=== PATIENT | male | born 1975 | race Caucasian/White ===

== ENCOUNTER 2017-02-08 12:28 | Emergency (ER) | payer SELFPAY ==
[~2017-02-08] VITALS: Ht 170.2 cm; Wt 75.3 kg
[2017-02-08 13:17] VITALS: BP 113/92
--- NOTE | 2017-02-08 14:27 | NUR ---
Patient ambulated to bed 8. RN evaluating patient at bedside.
[2017-02-08] MEDS ORDERED: NACL 0.9% 1,000 ML IV SCH (14:28)
[2017-02-08] MEDS ORDERED: FAMOTIDINE 20 MG/2 ML VIAL IVP ONE (14:30)
[2017-02-08] MEDS ORDERED: ONDANSETRON 4 MG/2 ML VIAL IVP ONE (14:30)
[2017-02-08] MEDS ORDERED: ACETAMINOPHEN EXTRA STRENGTH 500 MG TAB PO ONE (14:40)
[2017-02-08 14:45] LABS: BASOPHILS # (AUTO) 0.1 K/uL (0.00-0.22); BASOPHILS % (AUTO) 1.1 % (0.0-2.0); EOSINOPHILS # (AUTO) 0.1 K/uL (0-0.4); EOSINOPHILS % (AUTO) 1.2 % (0.0-4.0); LYMPHOCYTES % (AUTO) 18.1 % (20.5-51.1); MEAN CORPUSCULAR HEMOGLOBIN 28 pg (27-31); MEAN CORPUSCULAR HGB CONC 33 g/dL (33-37); MEAN CORPUSCULAR VOLUME 87 fL (80-94); MONOCYTES # (AUTO) 0.3 K/uL (0.8-1.0); MONOCYTES % (AUTO) 4.6 % (1.7-9.3); NEUTROPHILS # (AUTO) 4.3 K/uL (1.8-7.7); PLATELET COUNT (AUTO) 531 K/uL (140-450); RED BLOOD CELL COUNT(AUTO) 5.31 MIL/uL (4.20-6.10); RED CELL DISTRIBUTION WIDTH 12.8 % (11.6-13.7); WHITE BLOOD COUNT (AUTO) 5.8 K/uL (4.8-10.8)
[2017-02-08 15:14] LABS: ANION GAP 7.5 (8-16); CALCIUM 8.3 mg/dL (8.5-10.1); CARBON DIOXIDE 29.6 mmol/L (21-32); CREATININE 1.1 mg/dL (0.6-1.3); POTASSIUM 4.1 mmol/L (3.5-5.1); TOTAL BILIRUBIN 0.6 mg/dL (0.0-1.0); TOTAL PROTEIN, SERUM 8.9 g/dL (6.4-8.2)
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
[2017-02-08 15:56] LABS: APPEARANCE,URINE CLEAR (CLEAR); BILIRUBIN,URINE NEGATIVE (NEGATIVE); BLOOD, URINE NEGATIVE (NEGATIVE); COLOR,URINE YELLOW (YELLOW); LEUKOCYTE ESTERASE ,URINE NEGATIVE (NEGATIVE); NITRITE, URINE NEGATIVE (NEGATIVE); PROTEIN,URINE TRACE (NEGATIVE); UGLUCOSE NEGATIVE (NEGATIVE)
[2017-02-08 15:59] LABS: AMPHETAMINE, URINE POS. ng/ml (NEG <=1000); BARBITURATE, URINE NEG. ng/ml (NEG <=200); BENZODIAZEPINE, URINE NEG. ng/mL (NEG <=200); CANNABINOID, URINE POS. ng/mL (NEG <=50); COCAINE, URINE NEG. ng/mL (NEG <=300); OPIATE, URINE NEG. ng/mL (NEG <=2000); PHENCYCLIDINE SCREEN,URINE NEG. ng/mL (NEG <=25)
[2017-02-08 16:04] LABS: BACTERIA,URINE 0-2 (RARE) /HPF (None Seen); RBC,URINE NONE SEEN /HPF (0-5); SQUAMOUS EPITHELIAL CELL,UR None Seen /LPF (0-3 (FEW)); WBC,URINE NONE SEEN /HPF (0-5)
[2017-02-08 16:58] VITALS: BP 127/65
== END 2017-02-08 16:55 | disposition home or self-care (01) ==
LOC: MED 12:28
DX: R11.2 Nausea with vomiting, unspecified (principal); R51 Headache; M79.1 Myalgia; F19.10 Other psychoactive substance abuse, uncomplicated
CPT/HCPCS: 36415; 80053; 80305; 81001; 82150; 83690; 85025; 87804; 96361; 96374; 96375; 99284; J2405; J3490; J7030

== ENCOUNTER 2019-06-03 15:45 | Emergency (ER) | payer OTHER ==
[~2019-06-03] VITALS: Ht 165.1 cm; Wt 68.5 kg
[2019-06-03 15:59] VITALS: BP 126/84
--- NOTE | 2019-06-03 16:03 | NUR ---
PT TO WAIT IN ER LOBBY. DR GALLEGO NOTIFIED OF PT STATUS
--- NOTE | 2019-06-03 16:15 | NUR ---
EKG PERFORMED BY [facility]NE EMT IN TRIAGE ROOM
--- NOTE | 2019-06-03 16:20 | NUR ---
PT BEING WHEELCHAIRED TO XRAY
[2019-06-03 16:26] LABS: BASOPHILS % (AUTO) 0.3 % (0.0-2.0); EOSINOPHILS # (AUTO) 0.4 K/uL (0-0.4); HEMATOCRIT 34.9 % (36-52); HEMOGLOBIN 11.9 g/dL (12.0-18.0); LYMPHOCYTES # (AUTO) 0.8 K/uL (2.0-11.5); LYMPHOCYTES % (AUTO) 13.3 % (20.5-51.1); MEAN CORPUSCULAR HEMOGLOBIN 28 pg (27-31); MEAN CORPUSCULAR HGB CONC 34 g/dL (33-37); MONOCYTES # (AUTO) 0.7 K/uL (0.8-1.0); MONOCYTES % (AUTO) 10.9 % (1.7-9.3); NEUTROPHILS # (AUTO) 4.1 K/uL (1.8-7.7); NEUTROPHILS % (AUTO) 68.5 % (42.2-75.2); PLATELET COUNT (AUTO) 238 K/uL (140-450); RED BLOOD CELL COUNT(AUTO) 4.21 MIL/uL (4.20-6.10); RED CELL DISTRIBUTION WIDTH 13.7 % (11.6-13.7); WHITE BLOOD COUNT (AUTO) 6.1 K/uL (4.8-10.8)
[2019-06-03 16:40] LABS: ANION GAP 11.9 (8-16); CARBON DIOXIDE 26.1 mmol/L (21-32); CREATININE 1.1 mg/dL (0.7-1.3)
[2019-06-03 16:46] LABS: ALBUMIN 2.5 g/dL (3.4-5.0); TOTAL BILIRUBIN 0.3 mg/dL (0.0-1.0)
--- NOTE | 2019-06-03 17:35 | NUR ---
PT TO ER BED 1
--- NOTE | 2019-06-03 17:51 | NUR ---
PT C/O SOB AND COUGH X 2 WEEKS. PT STATES HE RECENTLY STOPPED SMOKING. CP WITH COUGH AND WHITE/YELLOWISH PHLEGM, SOMETIMES WITH BLOOD. ADMITS TO SMOKING METH 2 WEEKS AGO. 30 LBS WEIGHT LOSS WITHIN LAST MONTH. RR EVEN AND UNLABORED. LUNG CLEAR BILATERAL; HR EVEN AND REGULAR; PATIENT STATES PAIN OF 0/10 AT THIS TIME; VSS; PATIENT POSITIONED FOR COMFORT; HOB ELEVATED; BEDRAILS UP X2; BED DOWN. ER MD MADE AWARE OF PT STATUS.
[2019-06-03] MEDS ORDERED: NACL 0.9% 1,000 ML IV ONE (18:00)
--- NOTE | 2019-06-03 19:17 | NUR ---
RECEIVED REPORT FROM DAY NURSE, 43 YO MALE AAOX4 SITTING UP IN GURNEY COMES TO ED FOR C/O SOB X 2 WEEKS. PT HAS PRODUCTIVE COUGH YELLOW SPUTUM NOTED. DIMINISHED BREATH SOUNDS @ BASES. PT STATES 30 LB WEIGHT LOSS AND RECENTLY QUIT SMOKING X 2WEEKS AGO. PT DENIES N/V/D. GURNEY LOCKED IN LOWEST POSITION. 18 G R AC PIV NOTED. NO ACUTE DISTRESS @ THIS TIME.
--- NOTE | 2019-06-03 19:18 | NUR ---
REPORT GIVEN TO TRISH SAVAGE. TRANSFERED CARE AT THIS TIME.
[2019-06-03 20:45] VITALS: BP 132/62
== END 2019-06-03 20:45 | disposition home or self-care (01) ==
LOC: MED 15:45
DX: J06.9 Acute upper respiratory infection, unspecified (principal); F17.200 Nicotine dependence, unspecified, uncomplicated; J45.909 Unspecified asthma, uncomplicated
CPT/HCPCS: 36415; 71045; 71275; 80053; 84484; 85025; 85379; 93005; 99284; J7030; Q9967

== ENCOUNTER 2019-12-30 14:39 | Emergency (ER) | payer MEDICAID, OTHER ==
[~2019-12-30] VITALS: Ht 167.6 cm; Wt 59.0 kg
[2019-12-30 14:45] VITALS: BP 136/92
--- NOTE | 2019-12-30 14:45 | NUR ---
BIBA TO BED 10.
--- NOTE | 2019-12-30 14:52 | NUR ---
PATIENT AMBULATED TO REST ROOM.
--- NOTE | 2019-12-30 15:12 | NUR ---
BIBA C/O N/V/D, ABDOMINAL PAIN. SEEN BY [facility] RECENTLY SAME S/S. PATIENT STATES PAIN OF 9/10 AT THIS TIME; VSS; PATIENT POSITIONED FOR COMFORT; HOB ELEVATED; BEDRAILS UP X1; BED DOWN. ER MD MADE AWARE OF PT STATUS.
--- NOTE | 2019-12-30 15:21 | NUR ---
Dr. Cooper is evaluating patient at bedside.
[2019-12-30 16:26] VITALS: BP 122/87
--- NOTE | 2019-12-30 16:26 | NUR ---
Patient given written and verbal discharge instructions and verbalizes understanding. Given copies of tests performed during visit. Patient is awake, alert and oriented. Ambulatory with steady gait. Refuses offer of [facility] placement. Given list of available shelters in surrounding areas. Bus pass provided.
== END 2019-12-30 16:26 | disposition home or self-care (01) ==
LOC: MED 14:39
DX: R11.2 Nausea with vomiting, unspecified (principal); R19.7 Diarrhea, unspecified
CPT/HCPCS: 99283

== ENCOUNTER 2020-01-06 08:08 | Emergency (ER) | payer MEDICAID ==
[~2020-01-06] VITALS: Ht 172.7 cm; Wt 72.6 kg
--- NOTE | 2020-01-06 08:08 | NUR ---
Patient BIBA BLS, transferred to bed 8. RN evaluating patient at bedside.
[2020-01-06 08:23] VITALS: BP 118/75
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
--- NOTE | 2020-01-06 08:33 | NUR ---
DR GALLEGO AT BEDSIDE EVALUATING PT.
[2020-01-06] MEDS ORDERED: KETOROLAC 60 MG/2 ML VIAL IM ONE (08:40)
--- NOTE | 2020-01-06 08:54 | NUR ---
IM MEDS GIVEN-NADR AT THIS TIME
[2020-01-06 10:23] VITALS: BP 121/88
--- NOTE | 2020-01-06 10:25 | NUR ---
Patient discharged with v/s stable. Written and verbal after care instructions given and explained. Patient alert, oriented and verbalized understanding of instructions. Ambulatory with steady gait. All questions addressed prior to discharge. ID band removed. Patient advised to follow up with PMD. Rx of NORCO,IBU given. Patient educated on indication of medication including possible reaction and side effects. Opportunity to ask questions provided and answered.
== END 2020-01-06 10:25 | disposition home or self-care (01) ==
LOC: MED 08:08
DX: M25.551 Pain in right hip (principal)
CPT/HCPCS: 96372; 99283; J1885

== ENCOUNTER 2020-01-06 15:54 | Emergency (ER) | payer MEDICAID ==
[~2020-01-06] VITALS: Ht 172.7 cm; Wt 72.6 kg
[2020-01-06 16:12] VITALS: BP 132/83
--- NOTE | 2020-01-06 16:50 | NUR ---
AMB TO BED 09
[2020-01-06] MEDS ORDERED: KETOROLAC 60 MG/2 ML VIAL IM ONE (17:50)
--- NOTE | 2020-01-06 18:00 | NUR ---
44 Y/M PRESENTS TO ED FOR ABDOMINAL PAIN X 3 DAY. PT REPORTS 3/10 R MID ABD PAIN AND L MID ABD PAIN. PT REPORTS N/V/D. DENIES FEVER OR CHILLS. ABDOMEN SOFT AND NONDISTENDED. BS ACTIVE. RR EVEN AND UNLABORED.
--- NOTE | 2020-01-06 18:20 | NUR ---
REGULAR DIET ORDERED FOR PT.
--- NOTE | 2020-01-06 18:36 | NUR ---
Note johnone in EDM - 01/06/20 at 1853 by SUMI Patient discharged with v/s stable. Written and verbal after care instructions given and explained. Patient alert, oriented and verbalized understanding of instructions. Ambulatory with steady gait. All questions addressed prior to discharge. ID band removed. Patient advised to follow up with PMD. Rx of MOTRIN AND IMODIUM given. Patient educated on indication of medication including possible reaction and side effects. Opportunity to ask questions provided and answered.
--- NOTE | 2020-01-06 18:40 | NUR ---
PT RECEIEVED MEAL TRAY AND EATING IN BED.
--- NOTE | 2020-01-06 18:44 | NUR ---
CALLED BUILDING SUPERVISOR FOR BUS PASS.
[2020-01-06 18:53] VITALS: BP 123/81
--- NOTE | 2020-01-06 18:53 | NUR ---
Patient discharged with v/s stable. Written and verbal after care instructions given and explained. Patient alert, oriented and verbalized understanding of instructions. Ambulatory with steady gait. All questions addressed prior to discharge. ID band removed. Patient advised to follow up with PMD. Rx of MOTRIN AND IMODIUM given. Patient educated on indication of medication including possible reaction and side effects. Opportunity to ask questions provided and answered.
== END 2020-01-06 18:53 | disposition home or self-care (01) ==
LOC: MED 15:54
DX: R19.7 Diarrhea, unspecified (principal); R10.9 Unspecified abdominal pain; F17.210 Nicotine dependence, cigarettes, uncomplicated
CPT/HCPCS: 96372; 99283; J1885